=== PATIENT | male | born 1960 | race Caucasian/White ===

== ENCOUNTER → 2018-03-19 | Outpatient (CLI) | payer OTHER | LOC: FIMAGING 07:17 | PROVIDERS: ATTEND Family Medicine | DX: K40.90 Unilateral inguinal hernia, without obstruction or gangrene, not specified as recurrent (principal) ==

== ENCOUNTER 2018-04-15 05:34 | Day surgery (SDC) | payer OTHER ==
[2018-04-15] MEDS ORDERED: ceFAZolin 2 GM/SWFI 2 GM/20 ML SYR IVP ONE (05:43)
[2018-04-15] MEDS ORDERED: LR 1,000 ML IV ONE (05:44)
[2018-04-15] MEDS ORDERED: LIDOCAINE 1% 2 ML INJ ID PRN (05:44)
[2018-04-15] MEDS ORDERED: BUPIVACAINE 0.5% 30 ML SDV ONE (06:58)
--- NOTE | 2018-04-15 07:12 | PDHPUP ---
History & Physical Update H&P update statement: This history and physical update is based on an assessment of the patient which was completed after admission or registration (within 24 hours), but prior to the surgery/procedure. H&P update: H&P reviewed & patient examined, no change in patient's condition since H&P completed
[2018-04-15] MEDS ORDERED: MIDAZOLAM 2 MG/2 ML VIAL IVP ONE (07:20)
--- NOTE | 2018-04-15 07:21 | PDANEPAE ---
ANE History of Present Illness left inguinal hernia ANE Past Medical History - Cardiovascular History Hx Hypertension: No Hx Arrhythmias: No Hx Chest Pain: No Hx Coronary Artery / Peripheral Vascular Disease: No Hx CHF / Valvular Disease: No Hx Palpitations: No - Pulmonary History Hx COPD: No Hx Asthma/Reactive Airway Disease: No Hx Recent Upper Respiratory Infection: No Hx Oxygen in Use at Home: No Hx Sleep Apnea: No Sleep Apnea Screening Result - Last Documented: Negative - Neurologic History Hx Cerebrovascular Accident: No Hx Seizures: No Hx Dementia: No - Endocrine History Hx Diabetes: No - Renal History Hx Renal Disorders: No - Liver History Hx Hepatic Disorders: No - Neurological & Psychiatric Hx Hx Neurological and Psychiatric Disorders: No - Cancer History Hx Cancer: No - Congenital Disorder History Hx Congenital Disorders: No - GI History Hx Gastrointestinal Disorders: No - Other Health History Other Health History: none - Chronic Pain History Chronic Pain: No - Surgical History Prior Surgeries: meniscus repair. varicose veins ANE Review of Systems Review of Systems: - Exercise capacity METS (RN): 6 METS ANE Patient History - Allergies Allergies/Adverse Reactions: No Known Allergies Allergy (Verified 04/12/18 14:23) - Home Medications Home Medications: Aspirin 04/12/18 [Last Taken 04/09/18] Coq10 04/12/18 [Last Taken 04/12/18] Crestor 04/12/18 [Last Taken 04/12/18] Fish Oil 1000 mg (*) 04/12/18 [Last Taken 04/12/18] Prilosec 04/12/18 [Last Taken 04/12/18] Valacyclovir HCl 04/12/18 [Last Taken 2 Weeks Ago ~04/01/18] - NPO status NPO Since - Liquids (Date): 04/14/18 NPO Since - Liquids (Time): 22:00 NPO Since - Solids (Date): 04/14/18 NPO Since - Solids (Time): 19:30 - Smoking Hx Smoking Status: Never smoked - Family Anes Hx Family Hx Anesthesia Complications: none ANE Labs/Vital Signs - Vital Signs Blood Pressure: 129/79 Heart Rate: 59 Respiratory Rate: 16 O2 Sat (%): 96 Height: 193.04 cm Weight: 97.522 kg ANE Physical Exam - Airway Neck exam: FROM Mallampati Score: Class 1 Mouth exam: normal dental/mouth exam - Pulmonary Pulmonary: no respiratory distress - Cardiovascular Cardiovascular: regular rate and rhythym - ASA Status ASA Status: II ANE Anesthesia Plan Anesthesia Plan: general endotracheal anesthesia
[2018-04-15] MEDS ORDERED: MIDAZOLAM 2 MG/2 ML VIAL ONE (07:22)
[2018-04-15] MEDS ORDERED: fentaNYL 100 MCG/2 ML INJ ONE ×2 (07:28)
[2018-04-15] MEDS ORDERED: PROPOFOL 200 MG/20 ML VIAL ONE ×2 (07:29→07:57)
[2018-04-15] MEDS ORDERED: ROCURONIUM 50 MG/5 ML VIAL ONE (07:40)
[2018-04-15] MEDS ORDERED: ONDANSETRON 4 MG/2 ML VIAL ONE (07:40)
[2018-04-15] MEDS ORDERED: DEXAMETHASONE 4 MG/ML VIAL ONE (07:40)
[2018-04-15] MEDS ORDERED: LIDOCAINE 2% 5 ML SDV ONE (07:40)
[2018-04-15] MEDS ORDERED: NALOXONE HCL 0.4 MG/ML INJ IVP PRN (07:47)
[2018-04-15] MEDS ORDERED: HYDROCODONE/APAP 5/325 TAB PO PRN (07:47)
[2018-04-15] MEDS ORDERED: PROMETHAZINE HCL 25 MG/ML INJ IVP PRN (07:47)
[2018-04-15] MEDS ORDERED: ONDANSETRON 4 MG/2 ML VIAL IVP PRN (07:47)
[2018-04-15] MEDS ORDERED: HYDROmorphONE/DILAUDID 2 MG/ML INJ IVP PRN (07:47)
[2018-04-15] MEDS ORDERED: fentaNYL 100 MCG/2 ML INJ IVP PRN (07:47)
--- NOTE | 2018-04-15 08:39 | POSTOPPROG ---
Post Op Note Date of Operation: 04/15/18 Surgeon: Gary Bragg Pattern Perforating Machine Operator: Sharona Anesthesiologist: Kalie Anesthesia: GET(General Endotracheal) Pre-op Diagnosis: Left inguinal hernia Post-op Diagnosis: same Indication: pain Procedure: Laparoscopic LIH repair Findings: left indirect inguinal hernia Inf/Abcess present in the surg proc area at time of surgery?: No Depth: Deep Incisional (Fascial) EBL: Minimal
--- NOTE | 2018-04-15 08:41 | POSTANESTH ---
Post Anesthetic Evaluation Cardiovascular Status: Normal, Stable Respiratory Status: Normal, Stable Level of Consciousness/Mental Status: Can Participate in Eval Pain Control: Adequate, Prn Tx Ordered Nausea/Vomiting Control: Adequate, Prn Tx Ordered Complications Possibly Related to Anesthesia: None Noted
[2018-04-15] MEDS ORDERED: HYDROCODONE/APAP 5/325 TAB ONE (09:04)
[2018-04-15 09:54] VITALS: BP 142/92
--- NOTE | 2018-04-16 15:44 | GOP ---
[f rep st] OPERATIVE REPORT DATE OF OPERATION: 04/15/2018 SURGEON: Gary Bragg MD BOARD WRITER: Lori Tabor NP. PREOPERATIVE DIAGNOSIS: A left inguinal hernia and umbilical hernia. POSTOPERATIVE DIAGNOSIS: A left inguinal hernia and umbilical hernia. PROCEDURE PERFORMED: 1. Laparoscopic left inguinal hernia repair with mesh and exploration of the right side. 2. Umbilical hernia repair. FINDINGS: The patient was found to have a moderate indirect left inguinal hernia, and a small less t ballard 1 cm umbilical hernia was identified. DESCRIPTION OF PROCEDURE: The patient was taken to the operating room where he received satisfactory general endotracheal anesthesia, placed in supine position, prepped and draped in the usual sterile fashion. An infraumbilical incision was made and carried down to the fascia. The umbilical hernia s ac was dissected free from surrounding subcutaneous tissue, and the sac was opened at the fascial lev el. Its contents were reduced, and the defect was closed with 0 Surgilon [id number] sutures. A second incision was then made inferior to this in the anterior rectus sheath. A subfascial tunnel w as developed in the preperitoneal space. That was dissected free with a balloon dissector which was replaced with a CO2 insufflation trocar. 2 other trocars were placed at the midline under direct vis ion. Branden ligament was exposed bilaterally. The cords were mobilized bilaterally. There was no e vidence of recurrent herniation on the right side. On the left, there was definitely an indirect sac which was dissected free back to the internal ring. The inguinal floor was exposed, and the Covidie n polyester mesh patch was placed over the inguinal floor. It was split laterally to pass the limb a round the cord structures. It was anchored in place with AbsorbaTack, securing it to Branden ligament , lacunar ligament, to the anterior abdominal wall and the lateral abdominal wall. Hemostasis was as sured. Trocars removed under direct vision. Trocar sites were closed with 0 Vicryl for the fascia, 4-0 Monocryl subcuticular stitch for the skin. All layers infiltrated with 0.5% Marcaine. Blood los s was negligible. Attention was turned to the small umbilical defect, which was dissected free. The fascial edges were excised, and the defect was closed with interrupted 0 Surgilon [id number] sutures. Wounds were infiltrated with 0.5% Marcaine and closed with 3-0 Vicryl for the subcutaneous tissue and 4-0 Monocr yl subcuticular stitch for the skin. All layers were infiltrated with 0.5% Marcaine. Blood loss neg ligible. No complications. Taken to recovery room in good condition. /[id number]/MODL
== END 2018-04-15 10:35 | disposition home or self-care (01) ==
LOC: FSGY 05:34
PROVIDERS: ATTEND Surgery
PROC: 0WQF4ZZ Repair Abdominal Wall, Percutaneous Endoscopic Approach (ICD-10-PCS; principal; 2018-04-15 07:15)
PROC: 0YU64JZ Supplement Left Inguinal Region with Synthetic Substitute, Percutaneous Endoscopic Approach (ICD-10-PCS; principal; 2018-04-15 07:15)
DX: K40.90 Unilateral inguinal hernia, without obstruction or gangrene, not specified as recurrent (principal); K42.9 Umbilical hernia without obstruction or gangrene
CPT/HCPCS: C1727; C1781; J0690; J1100; J2250; J2405; J2704; J3010